=== PATIENT | male | born 1995 | race Caucasian/White ===

== ENCOUNTER 2016-12-16 11:21 | Emergency (ER) | payer OTHER ==
--- NOTE | 2016-12-16 12:13 | ED NURSING NOTES ---
Clinical Report - Nurses [facility] [address] [place] [address] 12/16/2016 11:23 [id number] TRI[facility] Triage time 11:30. Acuity: LEVEL 4. Chief Complaint: INJURY TO RIGHT HAND. 11:35 12/16/16. Alert. No acute distress. SEPSIS SCREEN: Sepsis Screen. Negative (no infection suspected/documented). GUS COMA SCORE: Gus Coma Scale: 15- eyes open spontaneously (4); best verbal response- oriented x 4 (5); best motor response- obeys commands (6). --11:35 Kayla Mauricio R.N. 11:30 12/16/16. BP: 138/81. HR: 100. RR: 16. O2 saturation: 98%. Temp: 98.1 F. Pain level now: 0/10. --11:35 Kayla Mauricio R.N. Weight: 74.8 kg stated. Height/Length: 71 inches Per Patient. BMI: 23. --11:33 Kayla Mauricio R.N. Medications None. --11:32 Kayla Mauricio R.N. Allergies None. --11:33 Kayla Mauricio R.N. History Arrived by private vehicle. Historian: patient. Primary physician (Dr Umana). This occurred (10 days ago). Occurred at home. ( Patient states he injured hand while punching a wall.). 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 PAST MEDICAL HX: Tetanus status: up-to-date. Immunizations: up-to-date. SOCIAL HX: Never smoker. Alcohol use. (pt states "rarely"). History of heavy drug use: marijuana. FALL RISK ASSESSMENT: Fall risk assessment completed. No fall risk identified. NUTRITIONAL RISK ASSESSMENT: The nutritional risk assessment revealed no deficiencies. FUNCTIONAL ASSESSMENT: Functional assessment: no impairments noted. LEARNING NEEDS ASSESSMENT: The learning needs assessment revealed no barriers. SKIN INTEGRITY ASSESSMENT: Skin integrity risk assessment completed. No skin integrity risk identified. --11:35 Kayla Mauricio R.N. PROBLEMS: Drug Poisoning. Immunizations. Addict. --11:33 Kayla Mauricio R.N. Interventions ID band on patient. To treatment room. --11:35 Kayla Mauricio R.N. PHYSICAL ASSESSMENT 11:38 12/16/16. Ambulatory to room. GENERAL / NEURO / PSYCH: Oriented X 4. Alert. Appears in no acute distress. CVS: Capillary refill is greater than 2 seconds. EXTREMITIES: Hypothenar eminence, right hand: swelling. Limited movement of the little finger secondary to weakness and swelling (diminished extension). SKIN: Skin intact. Skin is warm and dry. --11:38 Kayla Mauricio R.N. NURSING PROGRESS NOTES 11:38 12/16/16. Two patient identifiers checked. Call light placed in reach. Bed placed in lowest position. Brakes of bed on. Patient ready for evaluation- chart flagged and notification provided. --11:38 Kayla Mauricio R.N. Short arm fiberglass upper extremity splint applied to right forearm, wrist and hand by tech. Distal pulses intact, sensation intact and motor within normal limits. Sling applied. --12:30 Patricia Carolina, VIRIDIANA Tech1. DISPOSITION / DISCHARGE 12:21 12/16/16. --12:21 Kayla Mauricio R.N. 12:21 12/16/16. BP: 129/81. HR: 93. RR: 14. O2 saturation: 97%. Temp: deferred. Pain level now: 0/10. --12:21 Kayla aMuricio R.N. 12:54 12/16/16. No learning barriers present. Discharge instructions provided and reviewed with the patient and parent. Reviewed medication(s). Treatments reviewed. Reviewed referrals. Activity restrictions reviewed. Work note given. Patient and parent verbalized understanding. Written instructions provided in Japanese. The patient was discharged by the physician. He was discharged home and accompanied by parent. He left the Emergency Department ambulatory and via private vehicle. Parent driving. --12:54 Kayla Mauricio R.N. Locked/Released at 12/16/2016 12:56 by Kayla Mauricio R.N.
--- NOTE | 2016-12-16 12:13 | ED CLINICAL REPORT ---
Clinical Report - Physicians/Mid Levels [facility] [address] [place] [address] 12/16/2016 11:23 Patient: RENÉE SAENZ Time Seen: 11:38. Arrived- By private vehicle. Historian- patient. HISTORY OF PRESENT ILLNESS Chief Complaint: Injury to the right hand. The injury happened about 10 days ago. The patient sustained a moderate direct blow. With closed fist, patient struck wall. Patient is experiencing moderate pain. Patient denies injury to the head or neck. No other injury. REVIEW OF SYSTEMS The patient has had swelling. No tingling, numbness, weakness, foreign body or skin laceration. All systems otherwise negative, except as recorded above. PAST HISTORY PCP: Dr Umana PROBLEMS: Prior heroin overdose. Addict. The patient's dominant hand is the right. Tetanus immunization status is up-to-date. SOCIAL HISTORY History of IV drug use: heroin, marijuana. Is a recovering addict. ADDITIONAL NOTES The nursing notes have been reviewed. PHYSICAL EXAM Vital Signs: 12/16/2016 11:30 BP: 138/81. HR: 100. RR: 16. O2 saturation: 98%. Temp: 98.1 F. Pain level now: 0/10. Appearance: Alert. Oriented X3. Patient in mild distress. Head: Head atraumatic. Eyes: Eyes normal inspection. No scleral icterus or pale conjunctivae. ENT: Nose normal. No injury to the nose. Neck: Normal inspection. Neck supple. C-spine non-tender. CVS: Normal heart rate and rhythm. Heart sounds normal. Pulses normal. Respiratory: No respiratory distress. Breath sounds normal. Chest nontender. Abdomen: No visible injury. Back: No tenderness. Normal inspection. (mild ecchymosis right hand). Skin: No cyanosis. Skin warm and dry. Skin intact. Skin not cool on palpation. No pallor or diaphoresis. Extremities: Anatomic snuffbox, right arm: No tenderness. Right hand: deformity consistent with a boxer's fracture, mild tenderness, moderate swelling and small ecchymosis localized to the proximal and ulnar aspect of the hand. Neurovascular intact distally. No erythema, laceration, abrasion, puncture wound or foreign body. No wrist injury. Extremities otherwise negative. Neuro, Vascular and Tendons: Vascular status intact. Sensation intact. Motor intact. Tendon function intact. Neuro: Oriented X 3. No motor deficit. No sensory deficit. LABS, X-RAYS, AND EKG Rt Hand X-ray: Moderately angulated, transverse fracture involving the base of the right fourth metacarpal. No open fracture of the fourth right metacarpal or open fracture of the fifth right metacarpal. Moderately angulated, transverse fracture involving the neck of the right fifth metacarpal. PROGRESS AND PROCEDURES Splint Application: Fiberglass ulnar gutter splint and short arm splint applied to right upper extremity. Splint applied by tech with direct supervision by the ED physician. Reassessed extremity following splint application. Neurovascular intact. Course of Care: Pt with Boxer's fx and base of 4th fx. He is splinted and given ortho follow up. He has no significant pain 12/16/2016 12:21 BP: 129/81. HR: 93. RR: 14. O2 saturation: 97%. Pain level now: 0/10. Patient/family counseled. Old ED records reviewed. Disposition: Discharged. Condition: stable and improved. CLINICAL IMPRESSION Closed displaced and mildly angulated fracture of the base of the fourth metacarpal and neck of the fifth metacarpal of the right hand. INSTRUCTIONS Apply ice. Elevate affected areas above chest level. Wear fiberglass splint until released. Do not work with right hand until released. Warnings: GENERAL WARNINGS: Return or contact your physician immediately if your condition worsens or changes unexpectedly, if not improving as expected, or if other problems arise. Prescription Medications: Ibuprofen 600mg tablets: take 1 tablet orally every 8 hours as needed for pain. Dispense thirty (30). No refills. OTC Medications: Acetaminophen (available over the counter): take according to label instructions. Follow-up: Follow up with an orthopedic surgeon Please call the orthopedic clinic at today for appointment time. Call for the next available appointment. (Electronically signed by Julio Marshall DO 12/16/2016 16:28)
--- NOTE | 2016-12-16 12:13 | ED ORDER SUMMARY ---
..... Patient: RENÉE SAENZ OrderSheet [facility] VisitID: [id number] [address] [place] [address] 21y, M Registration Date/Time: 12/16/2016 ORDER SHEET Weight: 74.8 kg (stated) Allergies: None GENERAL ORDERS: Hand 3 or 4V Right Urgent (11:39 12/16/2016 RMarsez R.N. per protocol) (11:47 MWinterer R.N.) Splint (UE) (Right) (Ulnar Gutter) (12:07 12/16/2016 Kory SEGAL) (Ack 12:15 RMarsden R.N.) (12:22 RMarsden R.N.) MEDICATION ORDERS: IV FLUIDS: ORDER SHEET NOTES: [Electronically signed by Kayla Mauricio R.N. (12:56 12/16/2016)] [Electronically signed by Julio Marshall DO (16:28 12/16/2016)] [Electronically locked/signed by Kayla Mauricio R.N. (12:56 12/16/2016)]
--- NOTE | 2016-12-16 12:13 | ED ORDER SUMMARY ---
..... Patient: RENÉE SAENZ OrderSheet [facility] VisitID: [id number] [address] [place] [address] 21y, M Registration Date/Time: 12/16/2016 ORDER SHEET Weight: 74.8 kg (stated) Allergies: None GENERAL ORDERS: Hand 3 or 4V Right Urgent (11:39 12/16/2016 RMarsez R.N. per protocol) (11:47 MWinterer R.N.) Splint (UE) (Right) (Ulnar Gutter) (12:07 12/16/2016 Kory SEGAL) (Ack 12:15 RMarsden R.N.) (12:22 RMarsden R.N.) MEDICATION ORDERS: IV FLUIDS: ORDER SHEET NOTES: [Electronically signed by Kayla Mauricio R.N. (12:56 12/16/2016)] [Electronically signed by Julio Marshall DO (16:28 12/16/2016)] [Electronically locked/signed by Kayla Mauricio R.N. (12:56 12/16/2016)]
--- NOTE | 2016-12-16 12:13 | ED CLINICAL REPORT ---
Clinical Report - Physicians/Mid Levels [facility] [address] [place] [address] 12/16/2016 11:23 Patient: RENÉE SAENZ Time Seen: 11:38. Arrived- By private vehicle. Historian- patient. HISTORY OF PRESENT ILLNESS Chief Complaint: Injury to the right hand. The injury happened about 10 days ago. The patient sustained a moderate direct blow. With closed fist, patient struck wall. Patient is experiencing moderate pain. Patient denies injury to the head or neck. No other injury. REVIEW OF SYSTEMS The patient has had swelling. No tingling, numbness, weakness, foreign body or skin laceration. All systems otherwise negative, except as recorded above. PAST HISTORY PCP: Dr Umana PROBLEMS: Prior heroin overdose. Addict. The patient's dominant hand is the right. Tetanus immunization status is up-to-date. SOCIAL HISTORY History of IV drug use: heroin, marijuana. Is a recovering addict. ADDITIONAL NOTES The nursing notes have been reviewed. PHYSICAL EXAM Vital Signs: 12/16/2016 11:30 BP: 138/81. HR: 100. RR: 16. O2 saturation: 98%. Temp: 98.1 F. Pain level now: 0/10. Appearance: Alert. Oriented X3. Patient in mild distress. Head: Head atraumatic. Eyes: Eyes normal inspection. No scleral icterus or pale conjunctivae. ENT: Nose normal. No injury to the nose. Neck: Normal inspection. Neck supple. C-spine non-tender. CVS: Normal heart rate and rhythm. Heart sounds normal. Pulses normal. Respiratory: No respiratory distress. Breath sounds normal. Chest nontender. Abdomen: No visible injury. Back: No tenderness. Normal inspection. (mild ecchymosis right hand). Skin: No cyanosis. Skin warm and dry. Skin intact. Skin not cool on palpation. No pallor or diaphoresis. Extremities: Anatomic snuffbox, right arm: No tenderness. Right hand: deformity consistent with a boxer's fracture, mild tenderness, moderate swelling and small ecchymosis localized to the proximal and ulnar aspect of the hand. Neurovascular intact distally. No erythema, laceration, abrasion, puncture wound or foreign body. No wrist injury. Extremities otherwise negative. Neuro, Vascular and Tendons: Vascular status intact. Sensation intact. Motor intact. Tendon function intact. Neuro: Oriented X 3. No motor deficit. No sensory deficit. LABS, X-RAYS, AND EKG Rt Hand X-ray: Moderately angulated, transverse fracture involving the base of the right fourth metacarpal. No open fracture of the fourth right metacarpal or open fracture of the fifth right metacarpal. Moderately angulated, transverse fracture involving the neck of the right fifth metacarpal. PROGRESS AND PROCEDURES Splint Application: Fiberglass ulnar gutter splint and short arm splint applied to right upper extremity. Splint applied by tech with direct supervision by the ED physician. Reassessed extremity following splint application. Neurovascular intact. Course of Care: Pt with Boxer's fx and base of 4th fx. He is splinted and given ortho follow up. He has no significant pain 12/16/2016 12:21 BP: 129/81. HR: 93. RR: 14. O2 saturation: 97%. Pain level now: 0/10. Patient/family counseled. Old ED records reviewed. Disposition: Discharged. Condition: stable and improved. CLINICAL IMPRESSION Closed displaced and mildly angulated fracture of the base of the fourth metacarpal and neck of the fifth metacarpal of the right hand. INSTRUCTIONS Apply ice. Elevate affected areas above chest level. Wear fiberglass splint until released. Do not work with right hand until released. Warnings: GENERAL WARNINGS: Return or contact your physician immediately if your condition worsens or changes unexpectedly, if not improving as expected, or if other problems arise. Prescription Medications: Ibuprofen 600mg tablets: take 1 tablet orally every 8 hours as needed for pain. Dispense thirty (30). No refills. OTC Medications: Acetaminophen (available over the counter): take according to label instructions. Follow-up: Follow up with an orthopedic surgeon Please call the orthopedic clinic at today for appointment time. Call for the next available appointment. (Electronically signed by Julio Marshall DO 12/16/2016 16:28)
--- NOTE | 2016-12-16 12:13 | ED NURSING NOTES ---
Clinical Report - Nurses [facility] [address] [place] [address] 12/16/2016 11:23 [id number] Triage time 11:30. Acuity: LEVEL 4. Chief Complaint: INJURY TO RIGHT HAND. 11:35 12/16/16. Alert. No acute distress. SEPSIS SCREEN: Sepsis Screen. Negative (no infection suspected/documented). GUS COMA SCORE: Gus Coma Scale: 15- eyes open spontaneously (4); best verbal response- oriented x 4 (5); best motor response- obeys commands (6). --11:35 Kayla Mauricio R.N. 11:30 12/16/16. BP: 138/81. HR: 100. RR: 16. O2 saturation: 98%. Temp: 98.1 F. Pain level now: 0/10. --11:35 Kayla Mauricio R.N. Weight: 74.8 kg stated. Height/Length: 71 inches Per Patient. BMI: 23. --11:33 Kayla Mauricio R.N. Medications None. --11:32 Kayla Mauricio R.N. Allergies None. --11:33 Kayla Mauricio R.N. History Arrived by private vehicle. Historian: patient. Primary physician (Dr Umana). This occurred (10 days ago). Occurred at home. ( Patient states he injured hand while punching a wall.). 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 PAST MEDICAL HX: Tetanus status: up-to-date. Immunizations: up-to-date. SOCIAL HX: Never smoker. Alcohol use. (pt states "rarely"). History of heavy drug use: marijuana. FALL RISK ASSESSMENT: Fall risk assessment completed. No fall risk identified. NUTRITIONAL RISK ASSESSMENT: The nutritional risk assessment revealed no deficiencies. FUNCTIONAL ASSESSMENT: Functional assessment: no impairments noted. LEARNING NEEDS ASSESSMENT: The learning needs assessment revealed no barriers. SKIN INTEGRITY ASSESSMENT: Skin integrity risk assessment completed. No skin integrity risk identified. --11:35 Kayla Mauricio R.N. PROBLEMS: Drug Poisoning. Immunizations. Addict. --11:33 Kayla Mauricio R.N. Interventions ID band on patient. To treatment room. --11:35 Kayla Mauricio R.N. PHYSICAL ASSESSMENT 11:38 12/16/16. Ambulatory to room. GENERAL / NEURO / PSYCH: Oriented X 4. Alert. Appears in no acute distress. CVS: Capillary refill is greater than 2 seconds. EXTREMITIES: Hypothenar eminence, right hand: swelling. Limited movement of the little finger secondary to weakness and swelling (diminished extension). SKIN: Skin intact. Skin is warm and dry. --11:38 Kayla Mauricio R.N. NURSING PROGRESS NOTES 11:38 12/16/16. Two patient identifiers checked. Call light placed in reach. Bed placed in lowest position. Brakes of bed on. Patient ready for evaluation- chart flagged and notification provided. --11:38 Kyala Mauricio R.N. Short arm fiberglass upper extremity splint applied to right forearm, wrist and hand by tech. Distal pulses intact, sensation intact and motor within normal limits. Sling applied. --12:30 Patricia Carolina, VIRIDIANA Tech1. DISPOSITION / DISCHARGE 12:21 12/16/16. --12:21 Kayla Mauricio R.N. 12:21 12/16/16. BP: 129/81. HR: 93. RR: 14. O2 saturation: 97%. Temp: deferred. Pain level now: 0/10. --12:21 Kayla Mauricio R.N. 12:54 12/16/16. No learning barriers present. Discharge instructions provided and reviewed with the patient and parent. Reviewed medication(s). Treatments reviewed. Reviewed referrals. Activity restrictions reviewed. Work note given. Patient and parent verbalized understanding. Written instructions provided in Nepali. The patient was discharged by the physician. He was discharged home and accompanied by parent. He left the Emergency Department ambulatory and via private vehicle. Parent driving. --12:54 Kayla Mauricio R.N. Locked/Released at 12/16/2016 12:56 by Kayla Mauricio R.N.
--- NOTE | 2016-12-16 12:28 | DIAGNOSTIC IMAGING REPORT ---
PROCEDURE: XR HAND 3 OR 4 VIEWS - RIGHT INDICATION: TRAUMA/INJURY TECHNIQUE: Four views. COMPARISON: None. FINDINGS: There are fractures of the fourth and fifth metacarpals right hand. IMPRESSION: 1. Fourth and fifth thumb metacarpal fractures right hand.
--- NOTE | 2016-12-16 16:28 | ED MAR SUMMARY ---
..... Medication Administration Record [facility] [address] [place], [place] [id number] Patient: JEOVANNYSIS RENÉE Knight Nima Visit ID: [id number] 21y, M Weight: 74.8 kg Height/Length: 71 in BMI: 23 ALLERGIES: None
--- NOTE | 2016-12-16 16:28 | ED DISCHARGE INSTRUCTIONS ---
Patient: RENÉE SAENZ General Instructions [facility] VisitID: [id number] [address] [place] [address] 21y, M Registration Date/Time: 12/16/2016 Closed displaced and mildly angulated fracture of the base of the fourth metacarpal and neck of the fifth metacarpal of the right hand. INSTRUCTIONS Apply ice. Elevate affected areas above chest level. Wear fiberglass splint until released. Do not work with right hand until released. Warnings: GENERAL WARNINGS: Return or contact your physician immediately if your condition worsens or changes unexpectedly, if not improving as expected, or if other problems arise. Prescription Medications: Ibuprofen 600mg tablets: take 1 tablet orally every 8 hours as needed for pain. Dispense thirty (30). No refills. OTC Medications: Acetaminophen (available over the counter): take according to label instructions. Follow-up: Follow up with an orthopedic surgeon Please call the orthopedic clinic at today for appointment time. Call for the next available appointment. ADDITIONAL INFORMATION Boxer Fracture You have a fracture (break) of one of the bones in your hand. This causes pain, swelling and sometimes bruising. This injury is treated with a splint or cast. It takes about 4-6 weeks to heal. Surgery may be needed for severe injuries. After the bone has healed, it is common for one knuckle to be slightly lower than the others, even if the bone was "set". This may be seen only when you make a fist and will not affect hand function. Home Care: 1) Keep your arm elevated to reduce pain and swelling. When sitting or lying down elevate your arm above the level of your heart. You can do this by placing your arm on a pillow that rests on your chest or on a pillow at your side. This is most important during the first 48 hours after injury. 2) Apply an ice pack (ice cubes in a plastic bag, wrapped in a towel) over the injured area for 20 minutes every 1-2 hours the first day. You can place the ice pack inside the sling and directly over the splint/cast. Continue with ice packs 3-4 times a day for the next two days, then as needed for the relief of pain and swelling. 3) Keep the cast/splint completely dry at all times. Bathe with your cast/splint out of the water, protected with a large plastic bag, rubber-banded at the top end. If a fiberglass cast/splint gets wet, you can dry it with a hair-dryer. 4) You may use acetaminophen (Tylenol) or ibuprofen (Motrin, Advil) to control pain, unless another pain medicine was prescribed. [ NOTE : If you have chronic liver or kidney disease or ever had a stomach ulcer or GI bleeding, talk with your doctor before using these medicines.] 5) If you cut, punctured or scraped your hand during this injury, there is a risk of infection. Watch for signs of infection listed below. Finish any antibiotics prescribed. Follow Up With Your Doctor Within One Week To Be Sure The Bone Is Healing Properly, Or As Advised By Our Staff. [NOTE: A radiologist will review any X-rays that were taken. We will notify you of any new findings that may affect your care.] Get Prompt Medical Attention If Any Of The Following Occur: The cast or splint becomes wet or soft Increased tightness or pain under the cast or splint Fingers become swollen, cold, blue, numb or tingly Bad odor from the splint/cast or you see wound fluid staining the cast Signs of infection: Fever, redness, warmth, swelling or drainage from the wound Fever of 100.4F (38C) or higher, or as directed by your healthcare provider Fracture:Hand [Closed] You have a fracture (break) of a bone in your hand. This may be a small crack or chip in the bone or, it may be a major break with the broken parts pushed out of position. A hand fracture is treated with a splint or cast. It usually takes 4-6 weeks to heal. Severe injuries may require surgery. Home Care: 1) Keep your arm elevated to reduce pain and swelling. When sitting or lying down elevate your arm above the level of your heart. You can do this by placing your arm on a pillow that rests on your chest or on a pillow at your side. This is most important during the first 48 hours after injury. 2) Apply an ice pack (ice cubes in a plastic bag, wrapped in a towel) over the injured area for 20 minutes every 1-2 hours the first day. You can place the ice pack inside the sling and directly over the splint/cast. Continue with ice packs 3-4 times a day for the next two days, then as needed for the relief of pain and swelling. 3) Keep the cast/splint completely dry at all times. Bathe with your cast/splint out of the water, protected with a large plastic bag, rubber-banded at the top end. If a fiberglass cast/splint gets wet, you can dry it with a hair-dryer. 4) You may use acetaminophen (Tylenol) or ibuprofen (Motrin, Advil) to control pain, unless another pain medicine was prescribed. [ NOTE : If you have chronic liver or kidney disease or ever had a stomach ulcer or GI bleeding, talk with your doctor before using these medicines.] Follow Up with your doctor within one week, or as advised by our staff, to be sure the bone is healing properly. If you were given a splint, it may be changed to a cast at your follow-up visit. [NOTE: A radiologist will review any X-rays that were taken. We will notify you of any new findings that may affect your care.] Get Prompt Medical Attention if any of the following occur: -- The plaster cast or splint becomes wet or soft -- The fiberglass cast or splint remains wet for more than 24 hours -- Increased tightness or pain under the cast or splint -- Fingers become swollen, cold, blue, numb or tingly Splint Care, Fiberglass The following will help you care for your splint: It will take up totwo hours for your fiber glass splint to fully harden; therefore, do notapply any pressure on it during that time or else it may break. To prevent swelling under the splint, for thefirst 48 hours: If the splint is on yourarm, keep it in a sling or raised to shoulder level when sitting or standing; rest it on your chest or on a pillow at your side when lying down. If the splint is on yourfoot, keep it propped up above the level of your waist when sitting or lying. Avoid crutch walking as much as possible during this time. Keep the splint/cast dry at all times. Bathe with your splint/cast well out of the water, protected with a large plastic bag, rubber-banded at the top end. If a fiberglass cast or splint gets wet, you can dry it with a hair-dryer. Follow-up care Follow up with your doctor or this facility as advised. When to seek medical care Get prompt medical attention if any of the following occur: Bad odor from the splint or wound-fluid stains the splint The splint cracks or remains wet over 24 hours Increasing tightness or pressure under the splint Fingers or toes become swollen, cold, blue, numb or tingly Increased pain under the splint Ibuprofen Oral tablet What is this medicine? IBUPROFEN (eye BYOO proe fen) is a non-steroidal anti-inflammatory drug (NSAID). It is used for dental pain, fever, headaches or migraines, osteoarthritis, rheumatoid arthritis, or painful monthly periods. It can also relieve minor aches and pains caused by a cold, flu, or sore throat. How should I use this medicine? Take this medicine by mouth with a glass of water. Follow the directions on the prescription label. Take this medicine with food if your stomach gets upset. Try to not lie down for at least 10 minutes after you take the medicine. Take your medicine at regular intervals. Do not take your medicine more often than directed. A special MedGuide will be given to you by the pharmacist with each prescription and refill. Be sure to read this information carefully each time. Talk to your instrument fitter regarding the use of this medicine in children. Special care may be needed. What side effects may I notice from receiving this medicine? Side effects that you should report to your doctor or health healthcare science specialist as soon as possible: allergic reactions like skin rash, itching or hives, swelling of the face, lips, or tongue black or bloody stools, blood in the urine or in vomit breathing problems changes in vision chest pain general ill feeling or flu-like symptoms nausea or vomiting redness, blistering, peeling or loosening of the skin, including inside the mouth slurred speech or weakness on one side of the body stomach pain unexplained weight gain or swelling unusually weak or tired yellowing of eyes or skin Side effects that usually do not require medical attention (report to your doctor or health healthcare science specialist if they continue or are bothersome): constipation or diarrhea dizziness gas or heartburn stomach upset What may interact with this medicine? Do not take this medicine with any of the following medications: cidofovir ketorolac methotrexate pemetrexed This medicine may also interact with the following medications: alcohol aspirin diuretics lithium other drugs for inflammation like prednisone warfarin What if I miss a dose? If you miss a dose, take it as soon as you can. If it is almost time for your next dose, take only that dose. Do not take double or extra doses. Where should I keep my medicine? Keep out of the reach of children. Store at room temperature between 15 and 30 degrees C (59 and 86 degrees F). Keep container tightly closed. Throw away any unused medicine after the expiration date. What should I tell my health care provider before I take this medicine? They need to know if you have any of these conditions: asthma cigarette smoker drink more than 3 alcohol containing drinks a day heart disease or circulation problems such as heart failure or leg edema (fluid retention) high blood pressure kidney disease liver disease stomach bleeding or ulcers an unusual or allergic reaction to ibuprofen, aspirin, other NSAIDS, other medicines, foods, dyes, or preservatives or trying to get breast-feeding What should I watch for while using this medicine? Tell your doctor or healthcare professional if your symptoms do not start to get better or if they get worse. This medicine does not prevent heart attack or stroke. In fact, this medicine may increase the chance of a heart attack or stroke. The chance may increase with longer use of this medicine and in people who have heart disease. If you take aspirin to prevent heart attack or stroke, talk with your doctor or health healthcare science specialist. Do not take other medicines that contain aspirin, ibuprofen, or naproxen with this medicine. Side effects such as stomach upset, nausea, or ulcers may be more likely to occur. Many medicines available without a prescription should not be taken with this medicine. This medicine can cause ulcers and bleeding in the stomach and intestines at any time during treatment. Ulcers and bleeding can happen without warning symptoms and can cause . To reduce your risk, do not smoke cigarettes or drink alcohol while you are taking this medicine. You may get drowsy or dizzy. Do not drive, use machinery, or do anything that needs mental alertness until you know how this medicine affects you. Do not stand or sit up quickly, especially if you are an older patient. This reduces the risk of dizzy or fainting spells. This medicine can cause you to bleed more easily. Try to avoid damage to your teeth and gums when you brush or floss your teeth. Acetaminophen Oral tablet What is this medicine? ACETAMINOPHEN (a set a SANDHYA rajinder fen) is a pain reliever. It is used to treat mild pain and fever. How should I use this medicine? Take this medicine by mouth with a glass of water. Follow the directions on the package or prescription label. Take your medicine at regular intervals. Do not take your medicine more often than directed. Talk to your instrument fitter regarding the use of this medicine in children. While this drug may be prescribed for children as young as 6 years of age for selected conditions, precautions do apply. What side effects may I notice from receiving this medicine? Side effects that you should report to your doctor or health healthcare science specialist as soon as possible: allergic reactions like skin rash, itching or hives, swelling of the face, lips, or tongue breathing problems fever or sore throat redness, blistering, peeling or loosening of the skin, including inside the mouth trouble passing urine or change in the amount of urine unusual bleeding or bruising unusually weak or tired yellowing of the eyes or skin Side effects that usually do not require medical attention (report to your doctor or health healthcare science specialist if they continue or are bothersome): headache nausea, stomach upset What may interact with this medicine? alcohol imatinib isoniazid other medicines with acetaminophen What if I miss a dose? If you miss a dose, take it as soon as you can. If it is almost time for your next dose, take only that dose. Do not take double or extra doses. Where should I keep my medicine? Keep out of reach of children. Store at room temperature between 20 and 25 degrees C (68 and 77 degrees F). Protect from moisture and heat. Throw away any unused medicine after the expiration date. What should I tell my health care provider before I take this medicine? They need to know if you have any of these conditions: if you frequently drink alcohol containing drinks liver disease an unusual or allergic reaction to acetaminophen, other medicines, foods, dyes or preservatives or trying to get breast-feeding What should I watch for while using this medicine? Tell your doctor or health healthcare science specialist if the pain lasts more than 10 days (5 days for children), if it gets worse, or if there is a new or different kind of pain. Also, check with your doctor if a fever lasts for more than 3 days. Do not take other medicines that contain acetaminophen with this medicine. Always read labels carefully. If you have questions, ask your doctor or pharmacist. If you take too much acetaminophen get medical help right away. Too much acetaminophen can be very dangerous and cause liver damage. Even if you do not have symptoms, it is important to get help right away. You have been given the following additional information: Fracture, Boxer's Fracture, Hand (Closed) Splint Care, Fiberglass Ibuprofen Oral tablet Acetaminophen Oral tablet Do not work with right hand until released. (Electronically signed by Julio Marshall DO 12/16/2016 16:28)
--- NOTE | 2016-12-16 16:28 | ED MAR SUMMARY ---
..... Medication Administration Record [facility] [address] [place], [place] [id number] Patient: JEOVANNYSIS RENÉE Knight Nima Visit ID: [id number] 21y, M Weight: 74.8 kg Height/Length: 71 in BMI: 23 ALLERGIES: None
--- NOTE | 2016-12-16 16:28 | ED MED RECONCILIATION SUMMARY ---
Patient: RENÉE SAENZ Medication Reconciliation Report [facility] VisitID: [id number] [address] [place] [address] 21y, M Registration Date/Time: 12/16/2016 Weight: 74.8 kg Height/Length: 71 in. BMI: 23.0 ALLERGIES: None The patient's Home Medications are listed below: NONE. The source(s) of the original Home Medication information: Not obtained. The following Medications were given to the patient in the Emergency Department: None. The following Medications were prescribed to the patient: Acetaminophen (available over the counter): take according to label instructions. -- Julio Marshall DO Ibuprofen 600mg tablets: take 1 tablet orally every 8 hours as needed for pain. Dispense thirty (30). No refills. -- Julio Marshall DO
--- NOTE | 2016-12-16 16:28 | ED MED RECONCILIATION SUMMARY ---
Patient: RENÉE SAENZ Medication Reconciliation Report [facility] VisitID: [id number] [address] [place] [address] 21y, M Registration Date/Time: 12/16/2016 Weight: 74.8 kg Height/Length: 71 in. BMI: 23.0 ALLERGIES: None The patient's Home Medications are listed below: NONE. The source(s) of the original Home Medication information: Not obtained. The following Medications were given to the patient in the Emergency Department: None. The following Medications were prescribed to the patient: Acetaminophen (available over the counter): take according to label instructions. -- Julio Marshall DO Ibuprofen 600mg tablets: take 1 tablet orally every 8 hours as needed for pain. Dispense thirty (30). No refills. -- Julio Marshall DO
== END 2016-12-16 12:54 | disposition home or self-care (01) ==
LOC: ED SRH 11:21
DX: S62.336A Displaced fracture of neck of fifth metacarpal bone, right hand, initial encounter for closed fracture (principal); W22.8XXA Striking against or struck by other objects, initial encounter; Y93.9 Activity, unspecified; Y92.9 Unspecified place or not applicable; Y99.9 Unspecified external cause status